=== PATIENT | female | born 1960 | race Caucasian/White ===

== ENCOUNTER 2017-09-03 17:26 | Emergency (ER) | payer OTHER ==
[2017-09-03 17:35] VITALS: BP 129/86; PULSE 73; RESP 20; TEMP 97.7; O2SAT 97
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
== END 2017-09-03 18:03 | disposition home or self-care (01) ==
DX: S16.1XXA Strain of muscle, fascia and tendon at neck level, initial encounter (principal); S40.012A Contusion of left shoulder, initial encounter; G44.319 Acute post-traumatic headache, not intractable; V13.4XXA Pedal cycle driver injured in collision with car, pick-up truck or van in traffic accident, initial encounter; Y92.410 Unspecified street and highway as the place of occurrence of the external cause; Y99.8 Other external cause status; Y93.55 Activity, bike riding